=== PATIENT | male | born 1985 | race Caucasian/White ===

== ENCOUNTER 2017-05-06 20:00 | Emergency (ER) | payer OTHER, MEDICAID ==
[2017-05-06 20:10] VITALS: BP 119/55; PULSE 110; RESP 20; TEMP 99; O2SAT 92
--- NOTE | 2017-05-06 20:10 | EDPHY ---
H & P Time Seen by Provider: 05/06/17 20:06 HPI/ROS: CHIEF COMPLAINT: Rash HISTORY OF PRESENT ILLNESS: The patient is a 31-year-old man here for medical clearance for mcc stating that he has had a chronic rash to his abdomen and upper thighs. He has been treated previously before for this. He states that he has used steroid creams and but that he has also been told that it is a lung virus that he got from his girlfriend. He has not had any recent changes in his symptoms. No fevers. REVIEW OF SYSTEMS: Constitutional: denies: chills, fever, recent illness, recent injury EENTM: denies: blurred vision, double vision, nose congestion Respiratory: denies: cough, shortness of breath Cardiac: denies: chest pain, irregular heart rate, lightheadedness, palpitations Gastrointestinal/Abdominal: denies: abdominal pain, diarrhea, nausea, vomiting, blood streaked stools Genitourinary: denies: dysuria, frequency, hematuria, pain Musculoskeletal: denies: joint pain, muscle pain Skin: See HPI Neurological: denies: headache, numbness, paresthesia, tingling, dizziness, weakness Hematologic/Lymphatic: denies: blood clots, easy bleeding, easy bruising Immunologic/allergic: denies: HIV/AIDS, transplant EXAM: GENERAL: Well-appearing, well-nourished and in no acute distress. HEAD: Atraumatic, normocephalic. EYES: Pupils equal round and reactive to light, extraocular movements intact, sclera anicteric, conjunctiva are normal. ENT: TMs normal, nares patent, oropharynx clear without exudates. Moist mucous membranes. NECK: Normal range of motion, supple without lymphadenopathy or JVD. LUNGS: Breath sounds clear to auscultation bilaterally and equal. No wheezes rales or rhonchi. HEART: Regular rate and rhythm without murmurs, rubs or gallops. ABDOMEN: Soft, nontender, normoactive bowel sounds. No guarding, no rebound. No masses appreciated. BACK: No CVA tenderness, no spinal tenderness, step-offs or deformities EXTREMITIES: Normal range of motion, no pitting or edema. No clubbing or cyanosis. NEUROLOGICAL: Cranial nerves II through XII grossly intact. Normal speech, normal gait. 5/5 strength, normal movement in all extremities, normal sensation PSYCH: Normal mood, normal affect. SKIN: Scaly slightly erythematous macular rash to lower abdomen and upper thighs and groin. Spares the penis. Spares the scrotum. No discharge. Itchy , no purulence. Source: Patient, Police Exam Limitations: No limitations - Medical/Surgical History Hx Asthma: No Hx Chronic Respiratory Disease: No Hx Diabetes: No Hx Cardiac Disease: No Hx Renal Disease: No Hx Cirrhosis: No Hx Alcoholism: No Hx HIV/AIDS: No Hx Splenectomy or Spleen Trauma: No Other PMH: pmh: PARTIAL SEIZURE, NERVE PAIN secondary to cervical disc disease, mood disorder, history of methamphetamine/drug abuse, anxiety. PSH: HERNIA REPAIR - Family History Significant Family History: No pertinent family hx - Social History Smoking Status: Current every day smoker Alcohol Use: Heavy Drug Use: Marijuana Constitutional: Initial Vital Signs Temperature (C) 37.2 C 05/06/17 20:08 Heart Rate 110 H 05/06/17 20:08 Respiratory Rate 20 05/06/17 20:08 Blood Pressure 119/55 L 05/06/17 20:08 O2 Sat (%) 92 05/06/17 20:08 O2 Delivery Mode Room Air Allergies/Adverse Reactions: diphenhydramine HCl [From Benadryl] Allergy (Verified 05/06/17 20:09) Penicillins Allergy (Verified 05/06/17 20:09) Home Medications: Medication Instructions Recorded Effexor 02/12/16 Gabapentin [Neurontin 300 MG (*)] 300 mg PO HS #20 cap 02/12/16 [facility] Single Strength Capsule 02/12/16 Medical Decision Making ED Course/Re-evaluation: The patient has what appears to be psoriasis and this is somewhat consistent with his history. I will start him on a steroid cream and cleared for mcc. Differential Diagnosis: Partial list of the Differential diagnosis considered include but were not limited to; psoriasis, eczema, allergic reaction and although unlikely based on the history and physical exam, I also considered herpes, cellulitis, abscess. - Data Points Medications Given: Discontinued Medications Triamcinolone (Triamcinolone 0.5% Cream) 1 justin TP TID JEN Stop: 11/02/17 21:59 Last Admin: 05/06/17 20:24 Dose: 1 tube Departure - Departure Disposition: Law Enforcement/Court/[facility] Clinical Impression: Psoriasis Condition: Fair Instructions: Triamcinolone (On the skin), Psoriasis (ED) Additional Instructions: Use the steroid cream twice daily for 1 week. Follow up with your doctor Referrals: NONE *PRIMARY CARE P,. [Primary Care Provider] - As per Instructions
[2017-05-06] MEDS ORDERED: TRIAMCINOLONE 0.5% 15GM CREAM TP SCH (22:00)
== END 2017-05-06 20:32 ==
DX: L40.9 Psoriasis, unspecified (principal); F17.200 Nicotine dependence, unspecified, uncomplicated

== ENCOUNTER 2017-05-20 10:18 | Emergency (ER) | payer OTHER, MEDICAID ==
[2017-05-20 10:30] VITALS: BP 122/65; PULSE 89; RESP 18; TEMP 98.6; O2SAT 95
[2017-05-20] MEDS ORDERED: IBUPROFEN 600 MG TAB PO ONE (10:55)
[2017-05-20] MEDS ORDERED: ACETAMINOPHEN 500 MG TAB PO ONE (10:55)
[2017-05-20] MEDS ORDERED: AZITHROMYCIN 250 MG TAB PO ONE (10:56)
--- NOTE | 2017-05-20 10:56 | EDPHY ---
HPI/HX/ROS/PE/MDM Narrative: CHIEF COMPLAINT: "Pain all over;" cough HISTORY OF PRESENT ILLNESS: The patient is a transient 31 y/o male complaining of "pain all over" after smoking methamphetamine yesterday. He has had a productive cough for several days and says he recently had a "lung infection" with mild intermittent chest pain a few days ago that he was evaluated for, but cannot tell me what he was diagnosed with or how he was treated. Today he feels like he has a fever, but has not measured it. He is a poor historian. No shortness of breath, palpitations, vomiting, diarrhea, urinary complaints, headache, lightheadedness. REVIEW OF SYSTEMS: Aside from elements discussed in the HPI, a comprehensive 10-point review of systems was reviewed and is negative. PAST MEDICAL HISTORY: Substance abuse. Psoriasis. SOCIAL HISTORY: Smokes cigarettes and marijuana. Last methamphetamine use yesterday. Transient. VITAL SIGNS: Reviewed by me GENERAL: Poorly cared for, lying with bloody mucus that he coughed up on his sheets and gown. HEENT: Atraumatic. Eyes: No icterus, no injection, normal pupils. Mouth: moist mucous membranes. No erythema or lesions. Neck: supple with no adenopathy. LUNGS: Clear to auscultation bilaterally, no wheezes, rhonchi or rales. CARDIAC: Regular rate and rhythm, no rubs, murmurs or gallops. ABDOMEN: Soft, nontender, nondistended, bowel sounds normal. BACK: No CVA tenderness. EXTREMITIES: No trauma. No edema. Range of motion is normal throughout. Silver paint on hands. NEURO: Alert and oriented, grossly nonfocal. SKIN: Warm and dry, confluent raised salmon-colored across lower trunk (patient states this is a psoriatic variant). PSYCHIATRIC: Normal mentation, no agitation. Portions of this note were transcribed by a director medical writing. I personally performed a history, physical exam, medical decision making, and confirmed accuracy of information the transcribed note. ED Course: This is a homeless 31 y/o male with active methamphetamine use and recent "lung infection" who presents with a few-day history of a productive cough. His lungs are clear and he is afebrile. Plan to treat as bronchitis with azithromycin, Tylenol, and ibuprofen. He will be discharged with standard bronchitis care and follow up instructions. Patient became upset at discharge and required security to escort him out of the ED. MDM: Differential diagnosis for the patient's cough was considered including but not limited to viral versus bacterial bronchitis, asthma, COPD, pulmonary emboli, upper respiratory infection, lower respiratory infection, and bronchospasm. - Data Points Medications Given: Discontinued Medications Acetaminophen (Tylenol) 1,000 mg PO EDNOW ONE Stop: 05/20/17 10:56 Last Admin: 05/20/17 11:03 Dose: 1,000 mg Azithromycin (Zithromax) 500 mg PO EDNOW ONE PRN Reason: Protocol Stop: 05/20/17 10:57 Last Admin: 05/20/17 11:02 Dose: 500 mg Ibuprofen (Motrin) 600 mg PO EDNOW ONE Stop: 05/20/17 10:56 Last Admin: 05/20/17 11:02 Dose: 600 mg General Time Seen by Provider: 05/20/17 10:43 Initial Vital Signs: Initial Vital Signs Temperature (C) 37 C 05/20/17 10:29 Heart Rate 89 05/20/17 10:29 Respiratory Rate 18 05/20/17 10:29 Blood Pressure 122/65 H 05/20/17 10:29 O2 Sat (%) 95 05/20/17 10:29 O2 Delivery Mode Room Air Allergies/Adverse Reactions: diphenhydramine HCl [From Benadryl] Allergy (Verified 05/06/17 20:09) Penicillins Allergy (Verified 05/06/17 20:09) Home Medications: Medication Instructions Recorded Effexor 02/12/16 Gabapentin [Neurontin 300 MG (*)] 300 mg PO HS #20 cap 02/12/16 [facility] Single Strength Capsule 02/12/16 Azithromycin [Zithromax] 250 mg PO DAILY #4 tab 05/20/17 Departure - Departure Disposition: Home, Routine, Self-Care Clinical Impression: Acute bronchitis Qualifiers: Bronchitis organism: unspecified organism Qualified Code(s): J20.9 - Acute bronchitis, unspecified Condition: Good Instructions: Azithromycin (By mouth), Acute Bronchitis (ED) Additional Instructions: 1. Take azithromycin as prescribed. Be sure to complete the entire prescription. 2. Stop smoking methamphetamine. 3. Follow up with your primary care provider for unimproved symptoms over the next 3-5 days. 4. Return for worsening of condition. Referrals: [facility],. [Clinic] - As per Instructions Prescriptions: Azithromycin [Zithromax] 250 mg PO DAILY #4 tab Report Scribed for: Barby Scott Report Scribed by: Kacie Main Date of Report: 05/20/17 Time of Report: 10:57
== END 2017-05-20 11:15 | disposition home or self-care (01) ==
LOC: EDUNIT#
DX: J20.9 Acute bronchitis, unspecified (principal); F17.210 Nicotine dependence, cigarettes, uncomplicated

== ENCOUNTER 2018-07-26 20:57 | Emergency (ER) | payer OTHER, MEDICAID ==
[2018-07-26] MEDS ORDERED: LORazepam 2 MG/ML INJ ONE (21:06)
[2018-07-26] MEDS ORDERED: NS 1,000 ML IV ONE (21:06)
[2018-07-26] MEDS ORDERED: LORazepam 2 MG/ML INJ IVP ONE (21:06)
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
[2018-07-26] MEDS ORDERED: OLANZapine 10 MG/2 ML VIAL ONE (21:15)
[2018-07-26] MEDS ORDERED: LORazepam 2 MG/ML INJ IM PRN (21:20)
[2018-07-26] MEDS ORDERED: OLANZapine 10 MG/2 ML VIAL IM ONE (21:23)
[2018-07-26] MEDS ORDERED: OLANZapine DISINTEGR 10 MG TAB ONE (21:24)
[2018-07-26] MEDS ORDERED: OLANZapine DISINTEGR 10 MG TAB PO ONE (21:30)
[2018-07-26 23:35] LABS: CREATINE KINASE 2034 IU/L (0-224)
[2018-07-26] MEDS ORDERED: NS 2,000 ML IV ONE (23:48)
[2018-07-26 23:54] LABS: PLATELET COUNT 314 10^3/uL (150-400)
[2018-07-27 02:27] LABS: CREATINE KINASE 1345 IU/L (0-224)
[2018-07-27 10:33] VITALS: BP 112/85
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
== END 2018-07-27 10:31 | disposition home or self-care (01) ==
LOC: EDUNIT#
DX: F15.20 Other stimulant dependence, uncomplicated (principal); M62.82 Rhabdomyolysis; F17.200 Nicotine dependence, unspecified, uncomplicated; Z59.0 Homelessness
CPT/HCPCS: 96360; 96361; 96372; 99284; J2060; G0480